=== PATIENT | female | born 1980 | race Caucasian/White ===

== ENCOUNTER 2022-08-02 17:48 | Emergency (ER) | payer BC, OTHER ==
[~2022-08-02] VITALS: Ht 177.8 cm; Wt 80.9 kg
[2022-08-02 18:00] VITALS: BP 106/77
[2022-08-02] MEDS ORDERED: MUPIROCIN 2% OINT 15gm or 22gm TOP ONE (19:30)
[2022-08-02] MEDS ORDERED: TETANUS-DIPTH-ACEL PERTUSSIS 0.5ML SYR Tdap IM ONE (19:30)
== END 2022-08-02 20:10 | disposition home or self-care (01) ==
LOC: ER 17:50
DX: S61.211A Laceration without foreign body of left index finger without damage to nail, initial encounter (principal); W26.0XXA Contact with knife, initial encounter; Y93.89 Activity, other specified; Y92.89 Other specified places as the place of occurrence of the external cause; Y99.8 Other external cause status
CPT/HCPCS: 12001; 90471; 90715

== ENCOUNTER 2022-08-14 17:32 | Emergency (ER) | payer BC ==
[~2022-08-14] VITALS: Ht 177.8 cm; Wt 85.0 kg
[2022-08-14 18:00] VITALS: BP 128/81
[2022-08-14] MEDS ORDERED: HYDROcodone-ACET 10/325MG TAB PO ONE (18:30)
[2022-08-14] MEDS ORDERED: IBUP800T27 PO (19:58)
[2022-08-14] MEDS ORDERED: AMOX-277 PO (19:58)
[2022-08-14] MEDS ORDERED: KETOROLAC TROMETH 60MG/2ML VIAL IM ONE (22:00)
== END 2022-08-14 22:10 | disposition home or self-care (01) ==
LOC: ER 17:32
DX: M79.641 Pain in right hand (principal); R20.0 Anesthesia of skin; S61.431A Puncture wound without foreign body of right hand, initial encounter; W54.0XXA Bitten by dog, initial encounter; Y93.89 Activity, other specified; Y92.89 Other specified places as the place of occurrence of the external cause; Y99.8 Other external cause status; Z98.890 Other specified postprocedural states
CPT/HCPCS: 73120; 96372; 99283; J1885